=== PATIENT | male | born 2000 | race Caucasian/White ===

== ENCOUNTER 2022-08-28 12:18 | Emergency (ER) | payer SELFPAY ==
[2022-08-28 12:25] VITALS: BP 125/72; PULSE 49; RESP 18; TEMP 97.6; BMI 19.8
== END 2022-08-28 14:24 | disposition home or self-care (01) ==
LOC: JERFT 12:18 → JER 12:18 → JERFT 14:24
DX: H10.13 Acute atopic conjunctivitis, bilateral (principal)
CPT/HCPCS: 99283-25